=== PATIENT | female | born 1935 | race Caucasian/White ===

== ENCOUNTER 2016-05-28 09:22 | Outpatient (CLI) | payer MEDICARE ==
[~2016-05-28] VITALS: Ht 165.1 cm; Wt 70.0 kg
[2016-05-28 10:03] VITALS: BP 167/66; Ht 165.1 cm; Wt 70.0 kg
[2016-05-28] MEDS ORDERED: NEURONTIN 300300 MG PO (10:18)
[2016-05-28] MEDS ORDERED: VOLTAREN100 GM TOPICAL (10:18)
[2016-05-28] MEDS ORDERED: REQUIP0.25 MG PO (10:18)
[2016-05-28] MEDS ORDERED: NORVASC5 MG PO (10:19)
[2016-05-28] MEDS ORDERED: ATIVAN0.5 MG PO (10:19)
[2016-05-28] MEDS ORDERED: HYDROCHLOROTH12.5 M1 PO (10:19)
[2016-05-28] MEDS ORDERED: PEPCID AC20 MG PO (10:20)
[2016-05-28] MEDS ORDERED: GLIMEPIRIDE1 MG (10:20)
[2016-05-28] MEDS ORDERED: ZOCOR10 MG PO (10:20)
[2016-05-28] MEDS ORDERED: PRINIVIL20 MG PO (10:21)
[2016-05-28] MEDS ORDERED: GLUCOPHAGE500 MG PO (10:21)
[2016-05-28] MEDS ORDERED: FERROCITE PLUS1 CAP PO (10:22)
[2016-05-28] MEDS ORDERED: VITAMIN B-12500 MC1 PO (10:23)
[2016-05-28] MEDS ORDERED: FISH OIL 1,2001 CAP PO (10:23)
[2016-05-28] MEDS ORDERED: VITAMIN D31000 UNI2 PO (10:23)
--- NOTE | 2016-05-28 10:26 | NUR ---
1015 PATIENT GIVEN PROLIA INJECTION ORDERED TO LEFT UPPER ARM SQ TISSUE. NO PROBLEMS TO THE SITE NOTED. 1025 PATIENT STATES NO PROBLEMS AT THE SITE. DISCHARGED HOME WITH INSTRUCTIONS WITHOUT DISTRESS NOTED
== END 2016-05-28 10:25 ==
LOC: D.OPS 09:22
DX: M81.0 Age-related osteoporosis without current pathological fracture (principal)

== ENCOUNTER 2016-06-12 13:28 | Emergency (ER) | payer MEDICARE ==
[2016-05-28 10:03] VITALS: BMI 25.6
[~2016-06-12 13:28] MED LIST: ATIVAN0.5 MG PO; FERROCITE PLUS1 CAP PO; FISH OIL 1,2001 CAP PO; GLIMEPIRIDE1 MG; GLUCOPHAGE500 MG PO; HYDROCHLOROTH12.5 M1 PO; NEURONTIN 300300 MG PO; NORVASC5 MG PO; PEPCID AC20 MG PO; PRINIVIL20 MG PO; REQUIP0.25 MG PO; VITAMIN B-12500 MC1 PO; VITAMIN D31000 UNI2 PO; VOLTAREN100 GM TOPICAL; ZOCOR10 MG PO
== END 2016-06-12 14:49 | disposition home or self-care (01) ==
LOC: D.ER 13:28
DX: S93.401A Sprain of unspecified ligament of right ankle, initial encounter (principal); X58.XXXA Exposure to other specified factors, initial encounter; Y93.89 Activity, other specified; Y92.019 Unspecified place in single-family (private) house as the place of occurrence of the external cause; I10 Essential (primary) hypertension; E78.00 Pure hypercholesterolemia, unspecified; E11.9 Type 2 diabetes mellitus without complications

== ENCOUNTER → 2016-12-02 12:51 | Outpatient (CLI) | payer MEDICARE ==
[2016-12-02 14:05] VITALS: BP 136/76; Ht 165.1 cm
== END | disposition home or self-care (01) ==
LOC: D.OPS 12:51
DX: M81.0 Age-related osteoporosis without current pathological fracture (principal)

== ENCOUNTER → 2016-12-15 16:45 | Outpatient (CLI) | payer MEDICARE | END | disposition home or self-care (01) | LOC: D.MAMMO 16:45 | DX: Z12.31 Encounter for screening mammogram for malignant neoplasm of breast (principal) ==

== ENCOUNTER 2016-12-29 11:09 | Outpatient (CLI) | payer MEDICARE ==
--- NOTE | ~2016-12-29 | HEMODYNAMI ---
PATIENT:CALEB DIAZ MEDICAL RECORD: [id number] : 39 LOCATION:[facility] ADMISSION DATE: 12/29/16 Generatedon:12/29/201613:42 Patient name: CALEB DIAZ Patient #: [id number] SSN: D OB: 1935 Date of study: 12/29/2016 Page: Of Hemodynamic Procedure Report Patient Data Patient Demographics Procedure consent was obtained First Name: CALEB Gender: Female Last Name: JOE : 1935 Patient #: [id number] Age: 81 year(s) Race: Unknown Additional ID: [id number] Contact details [address]: [address] [place] [address] State: [place] City: [place] Zip code: [address] Past Medical History Allergies: No known allergies Admission Admission Data Admission Date: 12/29/2016 Admission Time: 11:09 Height (in.): 64.96 BSA: 1.72 (m2) Height (cm.): 165 BMI: 24.04 (kg/m2) Weight (lbs.): 144.29 Weight (kg.): 65.45 Lab Results Lab Result Date: 12/29/2016 Lab Result Time: 0:00 Biochemistry Name Units Result Min Max BUN mg/dl 24 --(----)-* 7 18 Creatinine mg/dl 1.4 --(----)*- 0.6 1.3 CBC Name Units Result Min Max Hemoglobin g/dl 11.7 *-(----)-- 13.5 17.5 Procedure Procedure Types Cath Procedure Diagnostic Procedure [facility] w/Coronaries PCI Procedure Coronary Stent Initial Miscellaneous Procedures Moderate Sedation up to 15 minutes Peripheral Cath Diagnostic Procedure Cath Peripheral Lbetp-Givapof-Qvk-Off Procedure Description Procedure Date Procedure Date: 12/29/2016 Procedure Start Time: 13:18 Procedure End Time: 13:42 Procedure Staff Name Function Gamal Merritt MD Performing Physician Della Garzon RT Scrub Yo Lopez RN Nurse Elizabeth Mcdowell RT Monitor Procedure Data Cath Procedure Fluoroscopy Diagnostic fluoroscopy Total fluoroscopy Time: 5.3 time: 5.3 min min Diagnostic fluoroscopy Total fluoroscopy dose: 632 dose: 632 mGy mGy Contrast Material Contrast Material Type Amount (ml) Isovue 300 148 Entry Location Entry Primary Successful Side Size Upsize Upsize Entry Closure Succes sful Closure Location (Fr) 1 (Fr) 2 (Fr) Remarks Device Remarks Femoral Right 5 Fr 6 Fr Exoseal artery Short Estimated blood loss: 10 ml Diagnostic catheters Device Type Used For End Catheter Placement Cordis 5Fr JL 4.0 Procedure Catheter (MP) Cordis 5Fr 3DRC Catheter Procedure (MP) Cordis 5Fr Pigtail Ventriculography Catheter (MP) Procedure Complications No complications Procedure Medications Medication Administration Route Dosage Oxygen NC 2 l/min Lidocaine 2% added to field 20 Heparin Flush Bag added to field 2 bags (1000units/500ml NS) 0.9% NaCl I.V. 100 ml Versed I.V. 1 mg Fentanyl I.V. 50 mcg Versed I.V. 1 mg Fentanyl I.V. 50 mcg Heparin Bolus I.V. 4000 units Integrilin (Bolus I.V. 6.2 ml 2mg/ml) Plavix P.O. 600 mg Hemodynamics Rest BSA: 1.72 (m2) HGB: 11.7 (g/dl) O2 Consumption: Estimated: 147.56 (ml/min) O2 Co nsumption indexed: Estimated:85.79 (ml/min/m) Heart Rate: 59 (bpm) Pressure Samples Time Site Value (mmHg) Purpose Heart Use Rate(bpm) 13:23 LV 123/4,9 Snapshot 56 13:23 LV 126/6,10 Snapshot 56 13:23 AO 118/50(77) Pullback 60 13:23 LV 121/13,15 Pullback 60 Gradients Valve Time Site 1 Site 2 Mean SEP/DFP Peak To Heart Use (mmHg) (sec/min) Peak Rate (mmHg) (bpm) Aortic 13:23 LV AO 3 14 3 60 121/13,15 118/50(77) Calculations Valve P-P Mean Valve Index Valve Source Name Gradient Area Flow (cm2) Aortic 3 3 3 3 Snapshots Pre Cath Intra NCS Post Cath Vital Signs Time Heart Resp SPO2 NIBP (mmHg) Rhythm Pain Sedation Rate (ipm) (%) Status Level (bpm) 13:09:11 57 18 100 184/78(147) NSR 0 (11) 10(A) , No pain 13:13:44 55 15 100 185/74(141) NSR 0 (11) 10(A) , No pain 13:18:08 52 18 97 140/60(105) NSR 0 (11) 9(A) , No pain 13:22:26 55 17 98 125/54(102) NSR 0 (11) 9(A) , No pain 13:26:44 60 16 99 122/52(92) NSR 0 (11) 9(A) , No pain 13:31:00 58 17 97 112/52(85) NSR 0 (11) 9(A) , No pain 13:35:14 58 16 99 113/51(81) NSR 0 (11) 9(A) , No pain 13:40:34 58 16 99 128/51(97) NSR 0 (11) 10(A) , No pain Medications Time Medication Route Dose Verified Delivered Reason Notes Effectiveness by by 13:13:58 Oxygen NC 2 Gamal Buffie used for l/min St. Jairon Lopez RN procedure 13:14:07 Lidocaine 2% added 20ml Gamal Gamal for local to vial [facility] anesthetic field MD GONZALES 13:14:17 Heparin Flush added 2 Gamal Gamal used for Bag to bags [facility] procedure (1000units/500ml field MD GONZALES NS) 13:14:26 0.9% NaCl I.V. 100 Gamal Buffie Per physician ml [facility]. Jairon Lopez RN, MD 13:14:43 Versed I.V. 1 mg Gamal Buffie for sedation St. Jairon Lopez RN, MD 13:14:49 Fentanyl I.V. 50 Gamal Buffie for sedation mcg [facility] Jairon Lopez RN, MD 13:22:57 Versed I.V. 1 mg Gamal Buffie for sedation St. Jairon Lopez RN, MD 13:23:01 Fentanyl I.V. 50 Gamal Buffie for sedation mcg [facility] Jairon Lopez RN, MD 13:27:25 Heparin Bolus I.V. 4000 Gamal Buffie for verifi ed units St. Jairon Lopez RN anticoagulation with dr MD fields 13:29:34 Integrilin I.V. 6.2 Gamal Buffie for wasted (Bolus 2mg/ml) ml St. Jairon Lopez RN antiplatelet 3.8 ml therapy of vial 13:41:47 Plavix P.O. 600 Gamal [address] for mg [facility]. Jairon Lopez RN antiplatelet MD therapy Procedure Log Time Note 12:52:58 Patient Height : 165 inches 12:53:07 Patient Weight : 65.45 lbs 12:53:58 Lab Result : BUN 24 mg/dl 12:53:58 Lab Result : Hemoglobin 11.7 g/dl 12:53:58 Lab Result : Creatinine 1.4 mg/dl 12:54:14 Procedure type changed to Cath procedure, Diagnostic procedure, LHC, LHC w/Coronaries, PCI procedure, Coronary Stent Initial, Miscellaneous Procedures, Moderate Sedation up to 15 minutes, Peripheral Cath Diagnostic Procedure, Cath Peripheral, Hvalu-Cbarnue-Ljo-Off 12:54:45 Diagnostic Cath status Elective 12:54:48 Elizabeth HARTLEY(R) sent for patient. Start room use. 12:54:49 Time tracking: Regular hours 12:54:54 Plan of Care:Hemodynamics will remain stable., Cardiac rhythm will remain stable., Comfort level will be maintained., Respiratory function will remain adequate., Patient/ family verbilizes understanding of procedure., Procedure tolerated without complication., Recovers from procedure without complications.. 13:03:35 Patient received from Pre/Post Procedure Room to CCL 2 Alert and oriented. Tansferred to table in Supine position. 13:03:36 Warm blankets applied, and alfredo hugger turned on for patient comfort. 13:03:36 Correct patient and procedure confirmed by team. 13:03:38 Signed procedure consent form obtained from patient. 13:03:48 ECG and BP/O2 sat monitors applied to patient. 13:05:07 H&P Date Dictated: 12/23/2016 Within 30 days and on chart., H&P Addendum completed by physician on day of procedure. (MUST COMPLETE FOR ALL OUTPATIENTS). 13:05:08 Pre-procedure instructions explained to patient. 13:05:09 Pre-op teaching completed and patient verbalized understanding. 13:05:11 Family in patients room. 13:05:12 Patient NPO since Midnight. 13:05:26 Patient allergic to No known allergies 13:05:50 Is the patient allergic to Iodine/contrast media? No. 13:06:09 Is patient on blood thinner?No 13:06:10 Patient diabetic? Yes. 13:06:11 If diabetic: On Metformin? Yes 13:06:14 If on Metformin: Last Dose? 12/27/2016 13:06:40 Previous problem with sedation/anesthesia? No ? 13:06:41 Snore? Yes 13:06:42 Sleep apnea? No 13:06:42 Deviated septum? No 13:06:43 Opens mouth fully? Yes 13:06:45 Sticks out tongue? Yes 13:06:48 Airway obstruction? Yes asthma 13:06:52 Dentures? No ? 13:06:56 Pre procedure: right dorsailis pedis pulse 1+ Palpable, but thready & weak; easily obliterated 13:06:57 Patient pain scale 0/10 ?. 13:07:10 IV patent on arrival in left hand with 0.9% NaCl at [facility]. 13:07:13 Lab results completed and on chart. 13:07:24 Right groin area was prepped with chlora-prep and draped in sterile fashion 13:07:25 Alarms reviewed by R. N. 13:07:26 Sharps counted by scrub and verified by R.N. 13:07:29 Use device set Femoral Dx 13:07:33 Tegaderm 4 x 4 opened to sterile field. 13:07:34 Acist Manifold opened to sterile field. 13:07:34 Acist Hand Control opened to sterile field. 13:07:35 Acist Syringe opened to sterile field. 13:07:36 Bag Decanter opened to sterile field. 13:07:36 Medline Cath Pack opened to sterile field. 13:07:37 Terumo 5Fr [place] Sheath opened to sterile field. 13:07:37 St Edgar 260cm J .035 wire opened to sterile field. 13:07:38 Diagnostic Infinity 5Fr Multipack catheter opened to sterile field. 13:07:53 Vital chart was started 13:07:58 Baseline sample Acquired. 13:10:29 Full Disclosure recording started 13:13:58 Oxygen 2 l/min NC was administered by Yo Lopez RN; used for procedure; 13:14:07 Lidocaine 2% 20ml vial added to field was administered by Gamal Merritt MD; for local anesthetic; 13:14:17 Heparin Flush Bag (1000units/500ml NS) 2 bags added to field was administered by Gamal Merritt MD; used for procedure; 13:14:25 Physician paged 13:: 0.9% NaCl 100 ml I.V. was administered by Yo Lopez RN; Per physician; :: Physician arrived 13:14: --------ALL STOP TIME OUT------ 13:14:28 Final Timeout: patient, procedure, and site verified with staff and physician. All members of the team are in agreement. 13:14:33 Bilateral groins site verified by team. 13:14:38 Sedation plan: IV Moderate Sedation Versed, Fentanyl 13:14:43 Versed 1 mg I.V. was administered by Yo Lopez RN; for sedation; 13:14:49 Fentanyl 50 mcg I.V. was administered by Yo Lopez RN; for sedation; 13:15:00 Physical assessment completed. ASA score P 2 - A patient with mild systemic disease as per Gamal Merritt MD. 13:18:14 Procedure started. 13:18:25 Local anesthetic to right femoral artery with Lidocaine 2% by Gamal Merritt MD.INITIAL ACCESS ONLY 13:18:39 A 5 Fr sheath was inserted into the Right Femoral artery 13:19:07 Zero performed for pressure channel P1 13:19:44 A Cordis 5Fr JL 4.0 Catheter (MP) was advanced over the wire and used for Procedure. 13:21:46 Catheter removed. 13:21:57 A Cordis 5Fr 3DRC Catheter (MP) was advanced over the wire and used for Procedure. 13:22:18 Catheter removed. 13:22:25 A Cordis 5Fr Pigtail Catheter (MP) was advanced over the wire and used for Ventriculography. 13:22:57 Versed 1 mg I.V. was administered by Yo Lopez RN; for sedation; 13:23:01 Fentanyl 50 mcg I.V. was administered by Yo Lopez RN; for sedation; 13:24:21 Abdominal angiogram w/ runoff was performed. 13:25:12 Catheter removed. 13:26:10 Sheath upsized to a 6 Fr Short. 13:27:25 Heparin Bolus 4000 units I.V. was administered by Yo Lopez RN; for anticoagulation; verified with dr fields 13:28:46 Terumo 6Fr [place] Sheath opened to sterile field. 13:28:48 Posibl. BasixCompak Inflation Kit opened to sterile field. 13:28:50 Medtronic Launcher 6Fr AR 1.0 SH guide catheter opened to sterile field. 13:28:51 Lewis Whisper J 300cm 0.014 guide wire opened to sterile field. 13:29:05 6 Fr AR 1 SH guide catheter was inserted over the wire 13:29:10 whisp wire advanced. 13:29:34 Integrilin (Bolus 2mg/ml) 6.2 ml I.V. was administered by Yo Lopez RN; for antiplatelet therapy; wasted 3.8 ml of vial 13:30:00 Wire advanced across lesion. 13:31:41 Inflation number: 1 A Peggs Sci Cowley 2.5 X 15 balloon was prepped and advanced across the Mid RCA, then inflated to 10 JAQUELINE for 0:12 (min:sec). 13:32:16 Inflation number: 2 The Peggs Sci Cowley 2.5 X 15 balloon was reinflated across the Mid RCA, to 10 JAQUELINE for 0:20 (min:sec). 13:32:51 Balloon removed over the wire. 13:36:24 Inflation Number: 3 A [place] OTW 3.0 x 22 stent was prepped and advanced across the Mid RCA. The stent was deployed at 10 JAQUELINE for 0:34 (min:sec). 13:36:40 Wire removed. 13:36:41 Guide catheter removed. 13:39:55 Cordis 6Fr Exoseal opened to sterile field. 13:40:10 Sheath removed intact; hemostasis achieved with Exoseal to the Right Femoral artery. 13:40:14 Procedure ended.(Physican Out) 13:40:41 Fluoroscopy time 05.30 minutes. 13:40:48 Fluoroscopy dose: 632 mGy 13:40:48 Flurop Dose total: 632 13:40:53 Contrast amount:Isovue 300 148ml. 13:40:55 Sharps counted by scrub and verified by R.N. 13:40:59 Insertion/operative site no bleeding no hematoma. 13:41:06 Post right femoral artery:stable 13:41:09 Post Procedure Pulses reassessed and unchanged 13:41:14 Post-procedure physical assessment completed. ASA score P 2 - A patient with mild systemic disease as per Gamal Merritt MD. 13:41:20 Post procedure rhythm: unchanged. 13:41:23 Estimated blood loss: 10 ml 13:41:25 Post procedure instruction explained to patient.Patient verbalizes understanding. 13:41:35 Procedure and supply charges have been captured, reviewed, submitted and are correct. 13:41:47 Plavix 600 mg P.O. was administered by Yo Lopez RN; for antiplatelet therapy; 13:41:58 Procedure Complication : No complications 13:42:00 Vital chart was stopped 13:42:01 See physician's report for complete and final results. 13:42:04 Report given to Pre/Post Procedure Room. 13:42:07 Patient transfered to Pre/Post Procedure Room with Stretcher. 13:42:10 Procedure ended. 13:42:10 Full Disclosure recording stopped 13:42:19 End room use (Document Last) 13:42:30 ACC-PCI Only Patient was given prescriptions, or instructed by Gamal Merritt MD to start/continue the following medications upon discharge: Plavix Intervention Summary Intervention Notes Time ActionType Lesion and Equipment Action# Pressure Duration Attributes Used 13:31:41 Inflate Mid RCA Peggs 1 10 00:12 balloon Sci Cowley 2.5 X 15 balloon 13:32:16 Reinflate Mid RCA Peggs 2 10 00:20 balloon Sci Cowley 2.5 X 15 balloon 13:36:24 Place stent Mid RCA [place] OTW 3 10 00:34 3.0 x 22 stent Device Usage Item Name Manufacture Quantity Catalog Number Hospital Part Current Min imal Lot# / Charge Number Stock Stock Serial# Code Tegade 4 1 [id number] [id number] [id number] 5 x 4 Acist Acist 1 90167 643553 917423 485448 5 Manifold [employer] Inc Acist Hand Acist 1 03358 953607 805306 867096 5 Control Medical Systems Inc Acist Acist 1 36921 419226 195236 288020 20 Syringe Medical Systems Inc Bag Microtek 1 2002S 823589 10968 494197 5 DecWine Ring [employer] Inc. Medline Cardinal 1 [id number] 938599 39471 914408 5 Cath Pack Health Terumo 5Fr Terumo 1 [id number] 963710 873874 659921 [address] Edgar 1 040202 924260 810979 486679 30 260cm J .035 wire Diagnostic Cardinal 1 [id number] 088558 17496 167666 30 Infinity Health 5Fr Multipack catheter Cordis 5Fr Cardinal 1 976104 5 JL 4.0 Health Catheter (MP) Cordis 5Fr Cardinal 1 817053 5 3DRC Health Catheter (MP) Cordis 5Fr Cardinal 1 279337 5 Pigtail Health Catheter (MP) Terumo 6Fr Terumo 1 [id number] 635700 720698 179978 40 [place] Sheath Merit Merit 1 [id number] 253645 256288 115945 15 Vive NanoixTherabiol Medical Inflation Kit Medtronic Medtronic 1 [id number] 754201 02489 059637 1 Launcher 6Fr AR 1.0 SH guide catheter Lewis Lewis 1 [id number] 297861 896935 009507 5 Whisper J Vascular 300cm 0.014 guide wire Peggs Sci Peggs 1 [id number] 330665 241230 735879 1 [id number] FoneSense 2.5 X 15 balloon Eron OTW Medtronic 1 [id number] 998260 5889648 173474 5 [id number] 3.0 x 22 stent Cordis 6Fr Cardinal 1 [id number] 221508 512072 500438 10 [facility] O4IT Signature Audit Platter Stage Time Signature Unsigned Intra-Procedure 12/29/2016 Elizabeth Mcdowell 1:42:49 PM RT(R) Signatures Monitor : Elizabeth Mcdowell Signature : RT Date : Time : [facility] [address] [place] [address]
[2016-12-29] MEDS ORDERED: COLACE100 MG PO (11:46)
[2016-12-29] MEDS ORDERED: BAYER CHEWABLE81 MG PO (11:48)
[2016-12-29] MEDS ORDERED: PROLIA INJ 660 MG/M1 IJ (11:50)
[2016-12-29 11:56] VITALS: BP 153/55; BMI 24.0
[2016-12-29 12:02] LABS: BASOPHILS 0.3 % (0-2); EOSINOPHILS 0.2 % (0-7); HEMATOCRIT 34.7 % (36.0-48.0); HEMOGLOBIN 11.7 g/dL (12-16); IMMATURE GRANULOCYTES 0.3 % (0-5); LYMPHOCYTES 39.3 % (15-50); MCH 29.5 pg (26.0-34.0); MCHC 33.7 g/dL (31.0-37.0); MCV 87.6 fL (80.0-100.0); MONOCYTES 8.1 % (2-11); NEUTROPHILS 51.8 % (40-80); PLATELET COUNT 215 10x3/uL (130-400); RBC 3.96 10x6/uL (4.00-5.40); RDW 12.7 % (11.5-14.5); WBC 5.8 10x3/uL (4.8-10.8)
[2016-12-29 12:12] LABS: ANION GAP 13.5 mmol/L (8-16); CALCIUM 9.3 mg/dL (8.5-10.1); CARBON DIOXIDE 25.8 mmol/L (21.0-32.0); CREATININE - SERUM 1.4 mg/dL (0.6-1.3); POTASSIUM - SERUM 4.3 mmol/L (3.5-5.1)
[2016-12-29] MEDS ORDERED: PLAVIX75 MG PO (14:05)
--- NOTE | 2016-12-29 14:41 | NUR ---
1415 LYING FLAT, ROOM AIR WITH NO DISTRESS. VITALS ALL WNL. R GROIN 6F EXOSEAL C/D/I WITH NO HEMATOMA OR BLEEDING. FAMILY AT BEDSIDE. DENIES NEEDS AT THIS TIME. 1440 VOIDED VIA BEDPAN, RGROIN REMAINS C/D/I WITH NO HEMATOMA OR BLEEDING.
--- NOTE | 2016-12-29 16:59 | NUR ---
1540 RESTING WITH EYES CLOSED, ROOM AIR. ALL VITALS WNL. R GROIN REMAINS C/D/I WITH NOHEMATOMA OR BLEEDING. SON AT BEDSIDE.
--- NOTE | 2016-12-29 17:00 | NUR ---
1640 CONTINUES TO SLEEP, VITALS WNL. R GROIN C/D/I. PULSES PALP X 4. ROOM AIR.
--- NOTE | 2016-12-29 17:07 | NUR ---
HOB ELEVATED, EATING TURKEY SANDWICH. WILL MONITOR R GROIN FOR BLEEDING.
--- NOTE | 2016-12-29 17:30 | NUR ---
UP FROM BED, AMBULATED TO BATHROOM TO VOID.
--- NOTE | 2016-12-29 17:44 | NUR ---
PIV REMOVED WITH BANDAID APPLIED. UP TO BEDSIDE TO DRESS.
--- NOTE | 2016-12-29 18:15 | NUR ---
D/C INSTRUCTIONS DISCUSSED WITH PATIENT AND SON AT BEDSIDE. BOTH VERBALIZED UNDERSTANDING. R GROIN REMAINS C/D/I W NO HEMATOMA OR BLEEDING. WHEELED OUT VIA WHEELCHAIR BY CATH TEAM.
--- NOTE | 2016-12-31 14:50 | OP ---
PATIENT NAME: CALEB DIAZ MEDICAL RECORD: [id number] :37 LOCATION:[facility] ADMISSION DATE: SURGEON: BRIA BENITEZ MD DATE OF OPERATION: 12/29/2016 PROCEDURES: Left heart catheterization, selective coronary angiography, right femoral approach. CATHETERS: A 5-Sudanese sheath, 5/4 left and right Elayne, 5/4 pig. The procedure was well tolerated. We proceeded then to AFRO. FINDINGS: Left ventriculography in 30-degree ESTRADA view: Normal wall motion, normal systolic function. CORONARY ANATOMY: LEFT MAIN: Left main is free of disease. LAD: Free of disease in the diagonal system. CIRCUMFLEX: Free of disease in the marginal system. RIGHT CORONARY ARTERY: Has a diffuse 80% stenosis in the mid portion typical of a diabetic vessel. AFRO catheter was then withdrawn to the level of the renal arteries. FINDINGS: 1. Both renal arteries are widely patent without evidence of stenosis. 2. Abdominal aorta: Shows no evidence of significant plaque disease or aneurysmal dilatation. 3. Right system: Right common iliac shows calcification with some wall disease, no significant stenosis. Right common femoral with mild wall disease with no significant stenosis. Right deep femoral, mild wall disease with no significant stenosis. Right superficial femoral, mild wall disease with no significant stenosis. 4. Left system: Left common iliac, mild wall disease with no significant stenosis. Left common femoral, mild wall diseaes without significant stenosis. Left deep femoral, no significant stenosis. Left superficial femoral, no significant stenosis. Both lower extremities had 2-vessel runoff. INTERVENTION TO THE RIGHT CORONARY: A 5-Sudanese sheath was exchanged for a 6-Sudanese sheath. AR1 guide catheter with side holes provided excellent guide catheter support followed by 300 cm Whisper wire placed across the tightly occluded right coronary down the source vessel, a 15 mm x 2.5 [place] balloon which was inflated up to 10 atmospheres for deployment. Next, stent deployed was a 3.0 x 23 mm Eron drug-eluting stent, was inflated up to 14 atmospheres for 45 seconds. Final angiography shows excellent resolution of 80% diffuse stenosis, no significant residual. JARRED flow was 3 throughout the procedure. Integrilin was used during the case. Sheath was closed with ExoSeal device. Plavix was loaded in the lab. TRANSINT:[id number] Voice Confirmation ID: [id number] DOCUMENT ID: [id number] OPERATIVE REPORT [id number] CALEB DIAZ,BRIA Bond MD at 1450 CC: [id number] DICTATION DATE: 12/29/16 1347 FISHER TRAP: 12/29/16 1745 DEP CLI 12/29/16 [facility] [address] [place] [id number]
== END 2016-12-29 18:17 | disposition home or self-care (01) ==
LOC: D.CATH 11:09
PROVIDERS: Internal Medicine Interventional Cardiology
DX: I25.119 Atherosclerotic heart disease of native coronary artery with unspecified angina pectoris (principal); I70.203 Unspecified atherosclerosis of native arteries of extremities, bilateral legs; Z01.812 Encounter for preprocedural laboratory examination
CPT/HCPCS: 93458; C9600

== ENCOUNTER 2017-01-01 00:04 | Emergency (ER) | payer MEDICARE ==
[~2017-01-01 00:04] MED LIST changes: +BAYER CHEWABLE81 MG PO; +COLACE100 MG PO; +PLAVIX75 MG PO; +PROLIA INJ 660 MG/M1 IJ
[2017-01-01 00:54] LABS: BASOPHILS 0.3 % (0-2); EOSINOPHILS 0.5 % (0-7); HEMATOCRIT 30.4 % (36.0-48.0); HEMOGLOBIN 10.4 g/dL (12-16); IMMATURE GRANULOCYTES 0.3 % (0-5); LYMPHOCYTES 38.5 % (15-50); MCH 30.1 pg (26.0-34.0); MCHC 34.2 g/dL (31.0-37.0); MCV 88.1 fL (80.0-100.0); MONOCYTES 7.1 % (2-11); NEUTROPHILS 53.3 % (40-80); PLATELET COUNT 210 10x3/uL (130-400); RBC 3.45 10x6/uL (4.00-5.40); RDW 12.8 % (11.5-14.5); WBC 6.5 10x3/uL (4.8-10.8)
== END 2017-01-01 01:24 | disposition home or self-care (01) ==
LOC: D.ER 00:04
PROVIDERS: Emergency Medicine
DX: L76.22 Postprocedural hemorrhage of skin and subcutaneous tissue following other procedure (principal); I10 Essential (primary) hypertension; E11.9 Type 2 diabetes mellitus without complications

== ENCOUNTER → 2017-01-08 21:52 | Outpatient (CLI) | payer MEDICARE ==
[2016-12-29 11:56] VITALS: BMI 24.0
== END | disposition home or self-care (01) ==
LOC: D.MAMMO 14:00
DX: R92.8 Other abnormal and inconclusive findings on diagnostic imaging of breast (principal)

== ENCOUNTER 2017-06-03 12:20 | Outpatient (CLI) | payer MEDICARE ==
[~2017-06-03] VITALS: Ht 165.1 cm; Wt 65.5 kg
[2017-06-03 13:47] VITALS: Ht 165.1 cm; Wt 65.5 kg
== END 2017-06-03 14:10 | disposition home or self-care (01) ==
LOC: D.OPS 12:20
DX: M81.0 Age-related osteoporosis without current pathological fracture (principal)

== ENCOUNTER 2018-01-05 11:57 | Outpatient (CLI) | payer MEDICARE ==
[~2018-01-05] VITALS: Ht 165.1 cm; Wt 65.5 kg
[2018-01-05 13:09] VITALS: BP 126/55; Ht 165.1 cm; Wt 65.5 kg
== END 2018-01-05 13:20 | disposition home or self-care (01) ==
LOC: D.OPS 11:57
DX: M81.0 Age-related osteoporosis without current pathological fracture (principal); Z01.812 Encounter for preprocedural laboratory examination

== ENCOUNTER 2018-03-17 19:00 | Outpatient (CLI) | payer MEDICARE ==
[2018-01-05 13:09] VITALS: BMI 24.0
== END 2018-03-17 23:59 | disposition home or self-care (01) ==
LOC: D.MAMMO 19:00
DX: Z12.31 Encounter for screening mammogram for malignant neoplasm of breast (principal)

== ENCOUNTER 2018-06-16 11:26 | Outpatient (CLI) | payer OTHER ==
[~2018-06-16] VITALS: Ht 165.1 cm; Wt 60.9 kg
[2018-06-16 11:57] VITALS: BP 150/44; Ht 165.1 cm; Wt 60.9 kg
== END 2018-06-16 11:55 | disposition home or self-care (01) ==
LOC: D.OPS 11:26
PROVIDERS: ATTEND Family Medicine
DX: M81.0 Age-related osteoporosis without current pathological fracture (principal)

== ENCOUNTER 2018-12-21 13:16 | Outpatient (CLI) | payer OTHER ==
[~2018-12-21] VITALS: Ht 165.1 cm; Wt 57.3 kg
[2018-12-21 13:44] VITALS: Ht 165.1 cm; Wt 57.3 kg
== END 2018-12-21 13:52 | disposition home or self-care (01) ==
LOC: D.OPS 13:16
PROVIDERS: ATTEND Family Medicine
DX: M81.0 Age-related osteoporosis without current pathological fracture (principal)

== ENCOUNTER 2019-02-28 14:30 | Outpatient (CLI) | payer OTHER ==
[2018-12-21 13:44] VITALS: BMI 21.0
== END 2019-02-28 15:00 | disposition home or self-care (01) ==
LOC: D.MAMMO 14:30
PROVIDERS: ATTEND Family Medicine
DX: Z12.31 Encounter for screening mammogram for malignant neoplasm of breast (principal)

== ENCOUNTER 2019-08-03 14:03 | Outpatient (CLI) | payer OTHER ==
[~2019-08-03] VITALS: Ht 165.1 cm; Wt 60.9 kg
[2019-08-03 14:26] VITALS: BP 182/62; Ht 165.1 cm; Wt 60.9 kg
--- NOTE | 2019-08-03 14:53 | NUR ---
ASSYMPTOMATIC ELEVATED BP, REPORTED TO DR. POZO. INSTRUCTED TO GO HOME AND TAKE HER HCTZ.
== END 2019-08-03 14:54 | disposition home or self-care (01) ==
LOC: D.OPS 14:03
PROVIDERS: ATTEND Family Medicine
DX: M81.0 Age-related osteoporosis without current pathological fracture (principal)

== ENCOUNTER → 2020-08-08 09:52 | Outpatient (CLI) | payer OTHER ==
[~2020-08-08] VITALS: Ht 165.1 cm; Wt 54.5 kg
[2020-08-08 10:24] VITALS: BP 143/67; Ht 165.1 cm; Wt 54.5 kg
== END | disposition home or self-care (01) ==
LOC: D.OPS 09:52
PROVIDERS: ATTEND Family Medicine
DX: M81.0 Age-related osteoporosis without current pathological fracture (principal)